=== PATIENT | male | born 1995 | race Native Hawaiian/Other Pacific Islander ===

== ENCOUNTER 2017-08-26 14:41 | Emergency (ER) | payer MEDICAID ==
--- NOTE | 2017-08-26 15:37 | EDPHY ---
H & P Stated Complaint: nystagmus sent in for CT of head- tubing accident yesterday Source: Patient Exam Limitations: No limitations - Personal History Current Tetanus/Diphtheria Vaccine: Yes Current Tetanus Diphtheria and Acellular Pertussis (TDAP): Yes - Medical/Surgical History Hx Asthma: No Hx Chronic Respiratory Disease: No Hx Diabetes: No Hx Cardiac Disease: No Hx Renal Disease: No Hx Cirrhosis: No Hx Alcoholism: No Hx HIV/AIDS: No Hx Splenectomy or Spleen Trauma: No Other PMH: Migraine H/A - Social History Smoking Status: Current every day smoker Time Seen by Provider: 08/26/17 15:35 HPI/ROS: HPI: This is a 21-year-old male who presents with Chief Complaint: nystagmus sent in for CT of head- tubing accident yesterday Location: Both eyes Quality: Nystagmus Duration: Unknown Signs and Symptoms: no fever, no nausea, no vomiting, no photophobia, no noise sensitivity, no neck stiffness, no ear pain, no tinnitus, no nasal congestion, no sinus pressure, no weakness, no radiation, no aura, no LOC, no vision changes Timing: Acute Severity: Mild Context: Patient reports that he was sent by [facility] for head CT scan after he sustained a closed head injury after to being in [place]. He reports that he hit his forehead on the rocks. Denies LOC, amnesia, nausea, vomiting. Does complain of a aching pressure-like frontal headache is slightly worse than his migraines. He also sustained bilateral knee abrasions, left elbow abrasion, right wrist abrasion and displaced fracture of the lateral malleolus of right fibula. He was placed in posterior splint and given crutches. Requesting Ortho referral for follow-up. Tetanus booster was administered at urgent care. He was diagnosed with a concussion with loss of consciousness. He denies any vision changes, neck stiffness, neck pain. He reports that he is recommended to wear glasses for reading by his eye doctor but does not do so. Modifying Factors: See above Comment: ROS: see HPI Constitutional: No fever, no chills, no weight loss Eyes: No blurred vision Respiratory: No shortness of breath, no cough Cardiovascular: No chest pain, no palpitations Gastrointestinal: No nausea, no vomiting, no diarrhea, no hematemesis, no blood in stool Genitourinary: No dysuria, no blood in urine Extremities: No myalgias, no edema Neurologic: No weakness, no numbness Skin: No rashes, no petechiae Hematologic: No bruising, no bleeding MEDICAL/SURGICAL/SOCIAL HISTORY: Medical history: Migraine headache Surgical history: Denies Social history: Current every day smoker. Family history noncontributory. General appearance: Extremely well-appearing young adult male, awake and alert, no distress. HEENT: Atraumatic and normocephalic, PERRL, EOMI. no globe entrapment, no raccoon eyes. no Pretty signs.Tympanic membranes clear. No tympanic membrane rupture. Nares patent; no septal hematoma. Oropharynx clear, no exudate and moist pink mucosa. No malocclusion. no dental trauma. Airway patent. No lymphadenopathy. NECK: supple, no midline tenderness, flexion 45 degrees, extension 45 degrees, right and left lateral flexion 45 degrees. No meningismus. Visual Acuity: Right eye 20/30, left 20/30, bilateral 20/20 Pupils: equal round and reactive to light. EOMI. Lids: no edema or swelling. Skin: no proptosis, no periorbital erythema or swelling, no vesicles. Conjunctivae: not injected, no discharge Cornea: exam with fluorescein not performed NEUROLOGICAL: no focal neuro deficits. GCS 15. One beat nystagmus noted bilaterally peripheral gaze evoked bilaterally SKIN: Warm and dry, multiple abrasions noted over his forehead, bilateral knees , left elbow, right wrist. no erythema. no rash. Good capillary refill. (Mira Hickey) Constitutional: Initial Vital Signs Temperature (C) 36.7 C 08/26/17 14:58 Heart Rate 91 08/26/17 14:58 Respiratory Rate 16 08/26/17 14:58 Blood Pressure 126/87 H 08/26/17 14:58 O2 Sat (%) 95 08/26/17 14:58 O2 Delivery Mode Room Air Allergies/Adverse Reactions: Penicillins Allergy (Verified 08/26/17 14:58) Home Medications: Medication Instructions Recorded NK [No Known Home Meds] 08/26/17 Medical Decision Making ED Course/Re-evaluation: Head CT scan without contrast performed due to dangers mechanism of injury. No LOC. No neurological deficits. One beat nystagmus noted; peripheral gaze dependent. No visual changes. 1700: Called by Radiology who advised that head CT scan shows no acute intracranial process. Patient will be discharged home with follow-up with Ophthalmology, concussion Clinic and Orthopedics. This patient was seen under the supervision of my secondary supervising physician. I evaluated care for this patient independently. Discussed this patient with Dr. Montenegro who did not see the patient. (Mira Hickey) Differential Diagnosis: Head injury including but not limited to concussion, skull fracture, intraparenchymal contusion, subarachnoid, subdural and epidural hematoma. (Mira Hickey) Other Provider: The patient was evaluated and managed by the Physician Chief Green Officer. I discussed the patient's presentation and course with the midlevel provider with them and agree with the evaluation. My co-signature indicates that I have reviewed this chart and I agree with the findings and plan of care as documented. I am the secondary supervising physician. (Ivonne Montenegro) Departure - Departure Disposition: Home, Routine, Self-Care Clinical Impression: Concussion without loss of consciousness, sequela, Nystagmus, Closed right fibular fracture Condition: Good Instructions: Leg Fracture (ED), Concussion (ED) Additional Instructions: Please observe concussion precautions. Follow-up with Dr. [facility]. Eye Complaint: Return to the Emergency Department for any increase in eye pain, redness, swelling, discharge or any worsening of your vision. Please with Ophthalmology for complete eye examination within the next 7-10 days. Follow-up with Orthopedics within the next 5-7 days as they will evaluate you and recommend whether conservative measures versus surgery is indicated. Keep the Splint dry and in place until seen by Orthopedics. After 48 hours, you may remove the dressing; wash the site daily with mild soap and water; then pat dry. Take Tylenol 650 mg every 4 hours and/or Ibuprofen 600 mg every 8 hours with food as needed for pain. Referrals: Terry Maldonado MD [Medical Doctor] - As per Instructions Caryn Chahal MD [Medical Doctor] - As per Instructions
[2017-08-26 17:18] VITALS: BP 144/92
== END 2017-08-26 17:18 | disposition home or self-care (01) ==
DX: H55.00 Unspecified nystagmus (principal); S06.0X0A Concussion without loss of consciousness, initial encounter; S82.401A Unspecified fracture of shaft of right fibula, initial encounter for closed fracture; F17.200 Nicotine dependence, unspecified, uncomplicated; W22.8XXA Striking against or struck by other objects, initial encounter; Y92.89 Other specified places as the place of occurrence of the external cause; Y99.8 Other external cause status

== ENCOUNTER 2017-09-01 11:38 | Emergency (ER) | payer MEDICAID ==
--- NOTE | 2017-09-01 12:22 | EDPHY ---
H & P Stated Complaint: r calf pain/us ordered but can't get in till 1:15 r/o dvt Time Seen by Provider: 09/01/17 12:00 HPI/ROS: CHIEF COMPLAINT: Right lower extremity pain HISTORY OF PRESENT ILLNESS: 21-year-old male presents with right lower extremity pain. On 08/26/17, he sustained an ankle fracture and has been and a posterior splint since then. He was taking Harts, but ran out of Harts 2 days ago. He followed up with orthopedic surgery today and plan for operative repair next week. On Ortho evaluation, there is concern for right lower extremity DVT because of pain and swelling of the proximal lower leg. REVIEW OF SYSTEMS: complete 10 point ROS negative except at noted in the HPI - Personal History Current Tetanus Diphtheria and Acellular Pertussis (TDAP): Yes - Medical/Surgical History Hx Asthma: No Hx Chronic Respiratory Disease: No Hx Diabetes: No Hx Cardiac Disease: No Hx Renal Disease: No Hx Cirrhosis: No Hx Alcoholism: No Hx HIV/AIDS: No Hx Splenectomy or Spleen Trauma: No Other PMH: Migraine H/A r fibular fx - Social History Smoking Status: Current every day smoker Alcohol Use: Sober Drug Use: None - Physical Exam Exam: General Appearance: Alert, pleasant Eyes: Pupils equal and round, no conjunctival pallor ENT, Mouth: Mucous membranes moist Neck: Normal inspection Respiratory: Lungs are clear to auscultation Cardiovascular: Regular rate and rhythm Gastrointestinal: Abdomen is soft and nontender Neurological: A&O, moves toes easily, good distal sensation Skin: Warm and dry, no rash Extremities: Right lower extremity is in a posterior splint that extends to the mid-calf, mild non-tender swelling of the calf, multiple abrasions of the knees Psychiatric: Mood and affect normal Constitutional: Initial Vital Signs Temperature (C) 36.9 C 09/01/17 11:43 Heart Rate 102 H 09/01/17 11:43 Respiratory Rate 18 09/01/17 11:43 Blood Pressure 106/70 09/01/17 11:43 O2 Sat (%) 94 09/01/17 11:43 O2 Delivery Mode Room Air Allergies/Adverse Reactions: Penicillins Allergy (Verified 09/01/17 11:42) Home Medications: Medication Instructions Recorded Bactrim DS 09/01/17 Hydrocodone/APAP 5/325 [Harts 1 - 2 tab PO Q4H PRN #20 tab 09/01/17 5/325 (*)] Medical Decision Making - Diagnostics Imaging Results: RLE sono: negative for DVT Imaging: Discussed imaging studies w/ housecalls nurse Radiologist Procedures: Orthoglass posterior and sugartong splint placed by special technical operations officer. Neurovasc intact and alignment adequate after placement. ED Course/Re-evaluation: sono results d/w pt. Splint replaced for more stability/comfort; pt feels much better after splint placement. f/u ortho for planned operative repair. Departure - Departure Disposition: Home, Routine, Self-Care Clinical Impression: Ankle fracture, right Qualifiers: Encounter type: initial encounter Fracture type: closed Qualified Code(s): S82.891A - Other fracture of right lower leg, initial encounter for closed fracture Condition: Good Instructions: Ankle Fracture (ED) Additional Instructions: You do not have a blood clot in your right leg. Keep your leg elevated whenever possible. Referrals: Terry Maldonado MD [Medical Doctor] - As per Instructions (Followup as planned.) Prescriptions: Hydrocodone/APAP 5/325 [Harts 5/325 (*)] 1 - 2 tab PO Q4H PRN #20 tab PRN Reason: Pain, Moderate
[2017-09-01 14:27] VITALS: BP 128/73
== END 2017-09-01 14:25 | disposition home or self-care (01) ==
DX: S82.891A Other fracture of right lower leg, initial encounter for closed fracture (principal); F17.200 Nicotine dependence, unspecified, uncomplicated; X58.XXXA Exposure to other specified factors, initial encounter
CPT/HCPCS: L4350